=== PATIENT | male | born 1970 | race African-American/Black ===

== ENCOUNTER 2019-05-02 18:40 | Emergency (ER) | payer OTHER ==
[~2019-05-02] VITALS: Ht 190.5 cm; Wt 136.1 kg
[2019-05-02] MEDS ORDERED: CYCLOBENZAPRINE HCL 10 MG TAB PO ONE (19:15)
[2019-05-02] MEDS ORDERED: TRAMADOL HCL 50 MG TAB PO ONE (19:15)
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
== END 2019-05-02 20:00 | disposition home or self-care (01) ==
LOC: ER 18:40
DX: S39.012A Strain of muscle, fascia and tendon of lower back, initial encounter (principal); V43.52XA Car driver injured in collision with other type car in traffic accident, initial encounter; Y92.410 Unspecified street and highway as the place of occurrence of the external cause; I10 Essential (primary) hypertension
CPT/HCPCS: 72110; 99283